=== PATIENT | male | born 1980 | race African-American/Black ===

== ENCOUNTER 2017-02-15 02:17 | Emergency (ER) | payer SELFPAY ==
[~2017-02-15] VITALS: Ht 175.3 cm; Wt 81.6 kg
[2017-02-15] MEDS ORDERED: NKM (02:26)
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
[2017-02-15] MEDS ORDERED: AMOXICILLIN500 MG ORAL (02:52)
[2017-02-15 03:25] VITALS: BP 115/66
[2017-02-15 03:26] VITALS: BP 0/0
== END 2017-02-15 03:25 | disposition home or self-care (01) ==
LOC: EMR 02:46
DX: S01.511A Laceration without foreign body of lip, initial encounter (principal); W50.0XXA Accidental hit or strike by another person, initial encounter; Y93.9 Activity, unspecified; Y92.29 Other specified public building as the place of occurrence of the external cause; Y99.9 Unspecified external cause status
CPT/HCPCS: 99283